=== PATIENT | male | born 1950 | race Caucasian/White ===

== ENCOUNTER → 2016-10-02 | Outpatient (CLI) | payer MEDICARE ==
[~2016-10-02] MED LIST: ACIDOPHILUS 17175 MG PO; ASPIRIN CHEWABL81 MG PO; ATORVASTATIN CA40 MG PO; CATAPRES 0.1MG0.1 MG PO; COLACE 100MG C100 MG PO; DOXYCYCLINE HY100 M2 PO; DULOXETINE HCL60 MG PO; FISH OIL 1,0001 EAC5 PO; FLEXERIL 10 MG10 MG PO; FLOVENT 440.088 GM/I INH; FOLIC ACID1 MG PO; LEVOCETIRIZINE D5 MG PO; LEVOTHYROXINE100 MCG PO; LORTAB 5-325 M1 EACH PO; LYRICA100 MG PO; NORCO 10-325 T1 EACH PO; NORVASC 5 MG TAB5 MG PO; PANTOPRAZOLE SO40 MG PO; RANITIDINE HCL150 M1 PO; ROPINIROLE HCL1 MG PO; TEGRETOL 200 M200 MG PO; TRAZODONE HCL50 MG PO; VITAMIN D50000 UNIT PO
== END ==
DX: R06.02 Shortness of breath (principal)
CPT/HCPCS: 94010

== ENCOUNTER → 2016-12-25 | Outpatient (CLI) | payer MEDICARE ==
[2016-12-25 08:16] LABS: HEMOGLOBIN 13.1 gm/dl (14.0-17.5); RED BLOOD COUNT 4.13 M/UL (4.20-5.50); WHITE BLOOD COUNT 2.7 K/UL (4.5-11.0)
[2016-12-25 08:30] LABS: BUN/CREATININE RATIO 19 (0-10)
== END ==
LOC: LAB 07:19
PROVIDERS: Nurse Practitioner Family
DX: J45.20 Mild intermittent asthma, uncomplicated (principal); I10 Essential (primary) hypertension; R53.83 Other fatigue; E78.5 Hyperlipidemia, unspecified; E55.9 Vitamin D deficiency, unspecified
CPT/HCPCS: 36415; 80053; 80061; 82607; 82785; 84439; 84443; 85025

== ENCOUNTER → 2020-08-17 | Outpatient (CLI) | payer OTHER ==
[~2020-08-17] MED LIST changes: +AJOVY AUTO225 MG/1.5 SQ; +ASPIRIN 325MG325 MG PO; +AZELASTINE137 MCG/0.; +BUTALBITAL-ACE1 EAC2 PO; +COMBIVENT RESPIM4 GM INH; +COMPAZINE10 MG PO; +CYANOCOBAL1000 MCG/1 IM; +CYMBALTA60 MG PO; +DEPO-TESTO200 MG/1 M IM; +DESYREL 50 MG T50 MG PO; +DOCUSATE SODIU250 MG PO; +DULERA 200 MCG8.8 GM INH; +ELAVIL 50 MG TA50 MG PO; +EPITOL200 MG PO; +FOLIC ACID 1 MG1 MG PO; +IPRATROPIUM BROMIDE; +ISOSORBIDE MONO30 MG PO; +KEFLEX500 MG PO; +LEVOTHYROXINE137 MCG PO; +LYRICA200 MG PO; +MAGOX 400400 MG PO; +MOVANTIK25 MG PO; +NITROGLYCERIN0.4 MG PO; +SINGULAIR10 MG PO; +VENTOLIN HFA 66.7 GM INH; +VITAMIN C 500500 MG PO; +VOLTAREN 0.1%2.5 ML OP
[2020-08-17 11:00] LABS: HEMOGLOBIN 13.5 gm/dl (14.0-17.5); RED BLOOD COUNT 4.3 M/UL (4.20-5.50); WHITE BLOOD COUNT 3.6 K/UL (4.5-11.0)
[2020-08-17 11:20] LABS: BUN/CREATININE RATIO 22 (0-10)
== END ==
LOC: LAB 10:06
PROVIDERS: Nurse Practitioner Family
DX: Z00.00 Encounter for general adult medical examination without abnormal findings (principal); K21.9 Gastro-esophageal reflux disease without esophagitis; M25.50 Pain in unspecified joint; K59.04 Chronic idiopathic constipation; G43.809 Other migraine, not intractable, without status migrainosus; E78.5 Hyperlipidemia, unspecified; I10 Essential (primary) hypertension; I25.10 Atherosclerotic heart disease of native coronary artery without angina pectoris; G56.03 Carpal tunnel syndrome, bilateral upper limbs; M54.12 Radiculopathy, cervical region; M47.812 Spondylosis without myelopathy or radiculopathy, cervical region; R53.83 Other fatigue; R20.8 Other disturbances of skin sensation; R41.3 Other amnesia; E53.8 Deficiency of other specified B group vitamins; E55.9 Vitamin D deficiency, unspecified
CPT/HCPCS: 36415; 80053; 80061; 82607; 84439; 84443; 85025

== ENCOUNTER → 2020-10-19 | Outpatient (CLI) | payer OTHER | LOC: RAD 11:29 | DX: M47.22 Other spondylosis with radiculopathy, cervical region (principal); M47.26 Other spondylosis with radiculopathy, lumbar region; M25.552 Pain in left hip; R53.1 Weakness; M16.12 Unilateral primary osteoarthritis, left hip; M19.042 Primary osteoarthritis, left hand; W19.XXXA Unspecified fall, initial encounter; Y92.009 Unspecified place in unspecified non-institutional (private) residence as the place of occurrence of the external cause | CPT/HCPCS: 72040; 72100; 73100; 73130; 73502 ==

== ENCOUNTER → 2020-12-01 | Outpatient (CLI) | payer MEDICARE | LOC: EXRD 10:42 | DX: S61.442A Puncture wound with foreign body of left hand, initial encounter (principal); Z96.698 Presence of other orthopedic joint implants; W26.9XXA Contact with unspecified sharp object(s), initial encounter | CPT/HCPCS: 73130 ==

== ENCOUNTER → 2020-12-10 | Outpatient (CLI) | payer MEDICARE | LOC: EXRD 10:54 | DX: R07.9 Chest pain, unspecified (principal); R06.02 Shortness of breath | CPT/HCPCS: 71046 ==

== ENCOUNTER → 2020-12-28 | Outpatient (CLI) | payer MEDICARE ==
[2020-12-28 10:44] LABS: HEMOGLOBIN 12.8 gm/dl (14.0-17.5); RED BLOOD COUNT 4.08 M/UL (4.20-5.50)
[2020-12-28 11:10] LABS: BUN/CREATININE RATIO 20 (0-10)
== END ==
LOC: LAB 10:05
PROVIDERS: Nurse Practitioner Family
DX: I11.0 Hypertensive heart disease with heart failure (principal); I50.9 Heart failure, unspecified; I20.9 Angina pectoris, unspecified; I45.10 Unspecified right bundle-branch block; R94.31 Abnormal electrocardiogram [ECG] [EKG]
CPT/HCPCS: 36415; 80048; 85025; 85610; 85730; 93005

== ENCOUNTER → 2021-01-18 | Outpatient (CLI) | payer MEDICARE ==
[2021-01-18 10:01] LABS: HEMOGLOBIN 12.4 gm/dl (14.0-17.5); RED BLOOD COUNT 3.92 M/UL (4.20-5.50); WHITE BLOOD COUNT 2.9 K/UL (4.5-11.0)
[2021-01-18 10:22] LABS: BUN/CREATININE RATIO 20 (0-10)
== END ==
LOC: CATH 09:18
PROVIDERS: Internal Medicine Interventional Cardiology
DX: I25.118 Atherosclerotic heart disease of native coronary artery with other forms of angina pectoris (principal); I10 Essential (primary) hypertension; Z20.822 Contact with and (suspected) exposure to COVID-19; Z79.82 Long term (current) use of aspirin; Z79.899 Other long term (current) drug therapy; Z82.49 Family history of ischemic heart disease and other diseases of the circulatory system
CPT/HCPCS: 36415; 80048; 85025; 85610; 85730; 93005; 99152; J0461; J1644; J2250; J3010; J7030; Q9967; U0002

== ENCOUNTER → 2021-03-07 | Outpatient (CLI) | payer MEDICARE | LOC: KOH-I 09:50 | DX: R07.9 Chest pain, unspecified (principal); R13.10 Dysphagia, unspecified | CPT/HCPCS: 76705 ==

== ENCOUNTER → 2021-03-28 | Outpatient (CLI) | payer MEDICARE | LOC: NM 08:59 | DX: R10.84 Generalized abdominal pain (principal); G89.29 Other chronic pain; R13.10 Dysphagia, unspecified; R68.81 Early satiety | CPT/HCPCS: 78227; A9537 ==

== ENCOUNTER → 2021-03-28 | Outpatient (CLI) | payer MEDICARE | LOC: KOH-I 15:00 | DX: Z87.891 Personal history of nicotine dependence (principal) | CPT/HCPCS: 71271 ==

== ENCOUNTER → 2021-06-13 | Outpatient (CLI) | payer MEDICARE ==
[2021-06-13 09:39] LABS: HEMOGLOBIN 13.1 gm/dl (14.0-17.5); RED BLOOD COUNT 4.31 M/UL (4.20-5.50); WHITE BLOOD COUNT 4.1 K/UL (4.5-11.0)
[2021-06-13 09:55] LABS: BUN/CREATININE RATIO 17 (0-10)
== END ==
LOC: LAB 08:34
PROVIDERS: Nurse Practitioner Family
DX: K21.9 Gastro-esophageal reflux disease without esophagitis (principal); M25.50 Pain in unspecified joint; M47.22 Other spondylosis with radiculopathy, cervical region; D64.9 Anemia, unspecified; R68.89 Other general symptoms and signs; R20.0 Anesthesia of skin; R20.8 Other disturbances of skin sensation; E55.9 Vitamin D deficiency, unspecified
CPT/HCPCS: 36415; 80053; 82607; 84439; 84443; 85025

== ENCOUNTER → 2021-07-21 | Outpatient (CLI) | payer MEDICARE | LOC: EMI 13:00 | DX: M48.02 Spinal stenosis, cervical region (principal); M47.812 Spondylosis without myelopathy or radiculopathy, cervical region; G95.89 Other specified diseases of spinal cord | CPT/HCPCS: 72141 ==

== ENCOUNTER → 2021-07-26 | Outpatient (CLI) | payer MEDICARE ==
[2021-07-26 11:08] LABS: HEMOGLOBIN 13.3 gm/dl (14.0-17.5); RED BLOOD COUNT 4.22 M/UL (4.20-5.50)
[2021-07-27 07:10] LABS: A/G RATIO 2.4 (1.2-2.2); ALKALINE PHOSPHATASE, S 126 IU/L (44-121); ALT (SGPT) 37 IU/L (0-44); AST (SGOT) 28 IU/L (0-40); BILIRUBIN, TOTAL 0.2 mg/dL (0.0-1.2); BUN 12 mg/dL (8-27); BUN/CREATININE RATIO 14 (10-24); CALCIUM, SERUM 8.9 mg/dL (8.6-10.2); CARBON DIOXIDE, TOTAL 27 mmol/L (20-29); CHLORIDE, SERUM 102 mmol/L (96-106); CHOLESTEROL, TOTAL 188 mg/dL (100-199); CREATININE, SERUM 0.87 mg/dL (0.76-1.27); EGFR IF AFRICN AM 102 (>59); EGFR IF NONAFRICN AM 88 (>59); GLOBULIN, TOTAL 1.8 g/dL (1.5-4.5); GLUCOSE, SERUM 48 mg/dL (65-99); HDL CHOLESTEROL 64 mg/dL (>39); LDL CHOLESTEROL CALC 95 mg/dL (0-99); LDL/HDL RATIO 1.5 ratio (0.0-3.6); POTASSIUM, SERUM 4.2 mmol/L (3.5-5.2); PROTEIN, TOTAL, SERUM 6.1 g/dL (6.0-8.5); SODIUM, SERUM 140 mmol/L (134-144); T. CHOL/HDL RATIO 2.9 ratio (0.0-5.0); TRIGLYCERIDES 170 mg/dL (0-149)
[2021-07-27 08:15] LABS: VITAMIN D, 25-HYDROXY 50.9 ng/mL (30.0-100.0)
[2021-07-27 10:15] LABS: CREATININE, URINE 94.7 mg/dL (Not Estab.)
[2021-07-28 04:12] LABS: TESTOSTERONE, SERUM 205 ng/dL (264-916)
== END ==
LOC: LAB 09:57
PROVIDERS: Nurse Practitioner Family
DX: Z00.00 Encounter for general adult medical examination without abnormal findings (principal); E29.1 Testicular hypofunction; I10 Essential (primary) hypertension; R10.84 Generalized abdominal pain; J45.30 Mild persistent asthma, uncomplicated; I25.10 Atherosclerotic heart disease of native coronary artery without angina pectoris; R79.89 Other specified abnormal findings of blood chemistry; R53.83 Other fatigue; M43.06 Spondylolysis, lumbar region; E53.8 Deficiency of other specified B group vitamins; D72.10 Eosinophilia, unspecified; E55.9 Vitamin D deficiency, unspecified
CPT/HCPCS: 36415; 80053; 80061; 81001; 82043; 82570; 84402; 84403; 84439; 84443; 85025

== ENCOUNTER → 2021-09-07 | Outpatient (CLI) | payer MEDICARE | LOC: KOH-I 12:12 | DX: M47.22 Other spondylosis with radiculopathy, cervical region (principal); M48.02 Spinal stenosis, cervical region; M47.12 Other spondylosis with myelopathy, cervical region | CPT/HCPCS: 72125 ==

== ENCOUNTER → 2021-09-16 | Outpatient (CLI) | payer MEDICARE ==
[~2021-09-16] MED LIST changes: +AMLODIPINE BESY10 MG PO; +BUTALB-ACETAMI1 EAC1 PO; +CRESTOR20 MG PO; +LEVOTHYROXINE112 MCG PO; -LEVOTHYROXINE137 MCG PO; +LOSARTAN POTASS25 MG PO; +OXYCODONE-ACETAMINOP PO; -PANTOPRAZOLE SO40 MG PO; +PROTONIX40 MG PO
[2021-09-16 09:45] LABS: HEMOGLOBIN 14.8 gm/dl (14.0-17.5); RED BLOOD COUNT 4.71 M/UL (4.20-5.50); WHITE BLOOD COUNT 3.8 K/UL (4.5-11.0)
[2021-09-16 10:02] LABS: BUN/CREATININE RATIO 15 (0-10)
== END ==
LOC: OPSV2 08:00 → EDSTATUS 08:00 → OPSV2 08:54
PROVIDERS: Orthopaedic Surgery
DX: Z01.818 Encounter for other preprocedural examination (principal); G95.89 Other specified diseases of spinal cord; E78.5 Hyperlipidemia, unspecified; I11.9 Hypertensive heart disease without heart failure; E07.9 Disorder of thyroid, unspecified; M50.022 Cervical disc disorder at C5-C6 level with myelopathy; M50.122 Cervical disc disorder at C5-C6 level with radiculopathy; R00.1 Bradycardia, unspecified; I45.2 Bifascicular block; R94.31 Abnormal electrocardiogram [ECG] [EKG]
CPT/HCPCS: 36415; 71046; 80048; 81001; 85027; 87081; 93005

== ENCOUNTER → 2021-09-20 | Outpatient (CLI) | payer MEDICARE ==
[~2021-09-20] MED LIST changes: +DULOXETINE HCL30 MG PO; -DULOXETINE HCL60 MG PO; +ENDOCET 7.5-321 EACH PO; +IPRATROPIUM BRO15 ML INH; -IPRATROPIUM BROMIDE; -OXYCODONE-ACETAMINOP PO; -ROPINIROLE HCL1 MG PO; +ROPINIROLE HCL2 MG PO
[2021-09-20 11:24] LABS: BUN/CREATININE RATIO 16 (0-10)
== END ==
LOC: LAB 10:17
PROVIDERS: Orthopaedic Surgery
DX: Z01.812 Encounter for preprocedural laboratory examination (principal); E78.5 Hyperlipidemia, unspecified; I11.9 Hypertensive heart disease without heart failure; M50.022 Cervical disc disorder at C5-C6 level with myelopathy; M50.122 Cervical disc disorder at C5-C6 level with radiculopathy; E07.9 Disorder of thyroid, unspecified
CPT/HCPCS: 36415; 80048; 85610; 85730; 86850; 86900; 86901

== ENCOUNTER 2021-09-21 05:09 | Day surgery (SDC) | payer MEDICARE ==
[~2021-09-21] VITALS: Ht 177.8 cm; Wt 85.4 kg
[2021-09-21 12:30] LABS: RED BLOOD COUNT 3.89 M/UL (4.20-5.50); WHITE BLOOD COUNT 4.8 K/UL (4.5-11.0)
[2021-09-21 12:37] LABS: HEMOGLOBIN 12.3 gm/dl (14.0-17.5)
[2021-09-21 12:38] LABS: BUN/CREATININE RATIO 15 (0-10)
[2021-09-22 04:39] LABS: HEMOGLOBIN 13.5 gm/dl (14.0-17.5)
[2021-09-22 04:53] LABS: RED BLOOD COUNT 4.35 M/UL (4.20-5.50); WHITE BLOOD COUNT 6.6 K/UL (4.5-11.0)
[2021-09-22 05:08] LABS: BUN/CREATININE RATIO 14 (0-10)
== END 2021-09-22 12:17 | disposition home or self-care (01) ==
LOC: OR 05:09 → CCU 12:27 → OR 09-22 12:17
PROVIDERS: Orthopaedic Surgery
PROC: 0RG10A0 Fusion of Cervical Vertebral Joint with Interbody Fusion Device, Anterior Approach, Anterior Column, Open Approach (ICD-10-PCS; principal; 2021-09-21 07:30)
PROC: 0RB30ZZ Excision of Cervical Vertebral Disc, Open Approach (ICD-10-PCS; principal; 2021-09-21 07:30)
PROC: 0RG1070 Fusion of Cervical Vertebral Joint with Autologous Tissue Substitute, Anterior Approach, Anterior Column, Open Approach (ICD-10-PCS; principal; 2021-09-21 07:30)
DX: M54.12 Radiculopathy, cervical region (principal); G95.89 Other specified diseases of spinal cord; I10 Essential (primary) hypertension; E78.5 Hyperlipidemia, unspecified; E03.9 Hypothyroidism, unspecified; K21.9 Gastro-esophageal reflux disease without esophagitis; Z20.822 Contact with and (suspected) exposure to COVID-19; Z79.82 Long term (current) use of aspirin; Z79.890 Hormone replacement therapy; Z79.899 Other long term (current) drug therapy; Z95.5 Presence of coronary angioplasty implant and graft
CPT/HCPCS: 36415; 72040; 72050; 76000; 80048; 83540; 83550; 83735; 83880; 85007; 85025; 85027; 94760; 97116-GP-CQ; 97161; 97166; C1713; C1781; J0360; J0690; J1040; J1100; J1170; J2001; J2370; J2405; J2704; J2710; J3010; J7040; J7120

== ENCOUNTER → 2021-12-22 | Outpatient (CLI) | payer MEDICARE | LOC: EXRD 13:22 | DX: S99.912A Unspecified injury of left ankle, initial encounter (principal); M79.89 Other specified soft tissue disorders | CPT/HCPCS: 73610; 73630 ==